=== PATIENT | male | born 2000 | race African-American/Black ===

== ENCOUNTER 2018-11-23 11:45 | Emergency (ER) | payer OTHER ==
[2018-11-23 11:52] VITALS: BP 112/65
[2018-11-23] MEDS ORDERED: IBUPROFEN 600 MG TABLET PO ONE (12:41)
[2018-11-23] MEDS ORDERED: ONDANSETRON 4 MG TAB.RAPDIS PO ONE (12:44)
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
== END 2018-11-23 12:55 | disposition home or self-care (01) ==
LOC: ER 11:45
DX: S39.012A Strain of muscle, fascia and tendon of lower back, initial encounter (principal); M54.6 Pain in thoracic spine; R51 Headache; F17.210 Nicotine dependence, cigarettes, uncomplicated; V89.2XXA Person injured in unspecified motor-vehicle accident, traffic, initial encounter
CPT/HCPCS: 99283; S0119